=== PATIENT | male | born 1990 | race Two or more races ===

== ENCOUNTER 2017-02-20 05:54 | Emergency (ER) | payer SELFPAY ==
[~2017-02-20] VITALS: Ht 180.3 cm; Wt 79.4 kg
[2017-02-20 06:02] VITALS: BP 138/88
--- NOTE | 2017-02-20 06:03 | Emergency Room Report ---
History of Present Illness General Source: Patient, EMS (ARIES FLOOD M.D.) Present Illness HPI 26YOM BIBEMS from rehab facility (for ETOH abuse). C/o left sided non- radiating chest pain for 10 hours. Associated with 1 week of productive cough. Denies fever/chills, abd pain, nausea/vomiting, urinary complaints. last used cocaine 1 week ago. Just started smoking cigarettes. Pain worse with movement. Was given nitro spray and ASA by EMS that brought pain down "a little." No previous AMI or PE. No other medical problems. EMS rhythm strip showed junctional rhythm. (ARIES FLOOD M.D.) Allergies: Coded Allergies: No Known Allergies (Unverified , 02/20/17) Patient History Past Medical History: none Past Surgical History: none Pertinent Family History: none Social History: Reports: alcohol use, drug use, smoking (ARIES FLOOD M.D. ) Review of Systems All Other Systems: negative except mentioned in HPI (ARIES FLOOD M.D.) Physical Exam Sp02 EP Interpretation: reviewed, normal General Appearance: normal inspection, well appearing, no apparent distress, alert, GCS 15, non-toxic, other - laughing, hyperactive Head: normocephalic, atraumatic Eyes: bilateral eye EOMI, bilateral eye PERRL ENT: normal ENT inspection, hearing grossly normal, normal voice Neck: normal inspection, full range of motion, supple, no bony tend Respiratory: normal inspection, lungs clear, normal breath sounds, no rhonchi, no respiratory distress, no retraction, no accessory muscle use, no wheezing, other - Chest wall pain reproducible, chest symmetrical Cardiovascular #1: regular rate, rhythm, no edema Gastrointestinal: normal inspection, normal bowel sounds, non tender, soft, no guarding, no hernia Genitourinary: no CVA tenderness Musculoskeletal: normal inspection, back normal, normal range of motion, Mohinder' s Sign negative Neurologic: normal inspection, alert, oriented x3, responsive, hydraulic plumber III-XII nml as tested, motor strength/tone normal, speech normal Psychiatric: normal inspection, judgement/insight normal, mood/affect normal Skin: normal inspection, normal color, no rash (ARIES FLOOD M.D.) Medical Decision Making Diagnostic Impression: Primary Impression: Chest pain Qualified Codes: R07.9 - Chest pain, unspecified Additional Impressions: Cough Hypokalemia ER Course 26YOM with chest pain for 10 hours, cough for 1 week. VSS. Afebrile. Improved with EMS given nitro sprays, ASA DDx includes ACS, PNA, PTX, cocaine ischemia PLAN ECG, labs, analgesia, CXR, reassess Endorsed to Dr Feldman at 615am to followup labs, CXR, determine disposition (ARIES FLOOD M.D.) ER Course Patient is a fairly complex patient with multiple differential to consideration including but not limited to cardiac cardiopulmonary and vascular emergencies Please refer to the initial history and note for initial specifics I do agree with that input At this time patient's EKG shows evidence of LVH Chest x-ray also showing evidence of likely borderline cardiomegaly patient has had extensive drug abuse in the past Potentially she been to this Otherwise acutely, enzyme was negative Given the duration of time and the patient's presentation unlikely for cardiac pathology at this time Patient's potassium was also low which was replaced At this time requires close outpatient followup urgently Labs Test 02/20/17 05:56 White Blood Count 7.3 K/UL (4.8-10.8) Red Blood Count 4.84 M/UL (4.70-6.10) Hemoglobin 15.0 G/DL (14.2-18.0) Hematocrit 45.4 % (42.0-52.0) Mean Corpuscular Volume 94 FL (80-99) Mean Corpuscular Hemoglobin 31.0 PG (27.0-31.0) Mean Corpuscular Hemoglobin Concent 33.0 G/DL (32.0-36.0) Red Cell Distribution Width 11.7 % (11.6-14.8) Platelet Count 147 K/UL (150-450) Mean Platelet Volume 10.2 FL (6.5-10.1) Neutrophils (%) (Auto) 68.7 % (45.0-75.0) Lymphocytes (%) (Auto) 17.8 % (20.0-45.0) Monocytes (%) (Auto) 11.4 % (1.0-10.0) Eosinophils (%) (Auto) 0.7 % (0.0-3.0) Basophils (%) (Auto) 1.4 % (0.0-2.0) Sodium Level 144 mEQ/L (135-145) Potassium Level 2.6 mEQ/L (3.4-4.9) Chloride Level 107 mEQ/L (98-107) Carbon Dioxide Level 20 mEQ/L (20-30) Anion Gap 17 (5-15) Blood Urea Nitrogen 13 mg/dL (7-23) Creatinine 0.6 mg/dL (0.7-1.2) Estimat Glomerular Filtration Rate > 60 mL/min (>60) Glucose Level 88 mg/dL (74-106) Calcium Level 7.1 mg/dL (8.6-10.2) Total Bilirubin 0.5 mg/dL (0.0-1.2) Aspartate Amino Transf (AST/SGOT) 111 U/L (5-40) Alanine Aminotransferase (ALT/SGPT) 28 U/L (3-41) Alkaline Phosphatase 34 U/L (40-129) Total Creatine Kinase 3430 U/L (38-174) Creatine Kinase MB 3.4 ng/mL (< 6.7) Creatine Kinase MB Relative Index 0.0 Troponin I < 0.30 ng/mL (<=0.30) Total Protein 6.2 g/dL (6.6-8.7) Albumin 3.3 g/dL (3.5-5.2) Globulin 2.9 g/dL Albumin/Globulin Ratio 1.1 (1.0-2.7) Urine Opiates Screen Negative (NEGATIVE) Urine Barbiturates Screen Negative (NEGATIVE) Phencyclidine (PCP) Screen Negative (NEGATIVE) Urine Amphetamines Screen Negative (NEGATIVE) Urine Benzodiazepines Screen Negative (NEGATIVE) Urine Cocaine Screen Negative (NEGATIVE) Urine Marijuana (THC) Screen Positive (NEGATIVE) (JEANE FELDMAN D.O.) EKG Diagnostic Results Rate: normal Rhythm: NSR ST Segments: other - LVH (JEANE FELDMAN.O.) Rhythm Strip Diag. Results EP Interpretation: yes Rate: 60 Rhythm: NSR, no PVC's, no ectopy (JEANE FELDMAN.Freddy.) Chest X-Ray Diagnostic Results EP Interpretation: Yes Findings: no consolidation, no effusion, no pneumothorax, other - Cardiomegaly Number of Views: 1 (JEANE FELDMAN.Freddy.) Status: improved (JEANE FELDMAN D.O.) Disposition: HOME, SELF-CARE Condition: Improved Additional Instructions: Patient is provided with the discharge instructions notified to follow up with primary doctor in the next 2-3 days otherwise return to the er with any worsening symptoms. Please note that this report is being documented using [employer] technology. This can lead to erroneous entry secondary to incorrect interpretation by the dictating instrument. ARIES FLOOD M.D. February 20, 2017 06:03 JEANE FELDMAN D.O. February 20, 2017 07:28
[2017-02-20 06:31] LABS: BASOPHILS % (AUTO) 1.4 % (0.0-2.0); EOSINOPHILS % (AUTO) 0.7 % (0.0-3.0); LYMPHOCYTES % (AUTO) 17.8 % (20.0-45.0); MEAN CORPUSCULAR VOLUME 94 FL (80-99); MEAN PLATELET VOLUME 10.2 FL (6.5-10.1); MONOCYTES % (AUTO) 11.4 % (1.0-10.0); NEUTROPHILS % (AUTO) 68.7 % (45.0-75.0); PLATELET COUNT 147 K/UL (150-450); RED BLOOD COUNT 4.84 M/UL (4.70-6.10); RED CELL DISTRIBUTION WIDTH 11.7 % (11.6-14.8); WHITE BLOOD COUNT 7.3 K/UL (4.8-10.8)
[2017-02-20 06:42] LABS: ALANINE AMINOTRANSFERASE 28 U/L (3-41); ALBUMIN/GLOBULIN RATIO 1.1 (1.0-2.7); ANION GAP 17 (5-15); ASPARTATE AMINO TRANSFERASE 111 U/L (5-40); CALCIUM 7.1 mg/dL (8.6-10.2); CARBON DIOXIDE 20 mEQ/L (20-30); CHLORIDE 107 mEQ/L (98-107); CREATININE 0.6 mg/dL (0.7-1.2); GLOMERULAR FILTRATION RATE > 60 mL/min (>60); HEMOLYSIS 4; SODIUM 144 mEQ/L (135-145); TOTAL PROTEIN 6.2 g/dL (6.6-8.7); TROPONIN I < 0.30 ng/mL (<=0.30)
[2017-02-20 06:52] LABS: CKMB 3.4 ng/mL (< 6.7)
[2017-02-20 07:00] LABS: POTASSIUM 2.6 mEQ/L (3.4-4.9)
[2017-02-20 07:35] VITALS: BP 149/90
--- NOTE | 2017-02-20 10:36 | Diagnostic Imaging Report ---
Indication: Chest pain Technique: Single AP view of the chest. Findings: Comparison: None. Cardiac silhouette upper limits of normal in size. The bones and extra pulmonary soft tissues, remainder of the cardiomediastinal silhouette, pulmonary vasculature and parenchyma, and pleural surfaces are unremarkable. IMPRESSION: Borderline cardiomegaly Otherwise negative.
--- NOTE | 2017-02-22 20:08 | Cardiology Report ---
APPROVED REPORT EKG Measurement Heart [id number] LA [id number] Sinus bradycardia with sinus arrhythmia Minimal voltage criteria for LVH, may be normal variant Borderline ECG
== END 2017-02-20 07:35 | disposition home or self-care (01) ==
LOC: EDBD 05:54 → EMR 06:05
DX: R07.9 Chest pain, unspecified (principal); R05 Cough; E87.6 Hypokalemia; F17.200 Nicotine dependence, unspecified, uncomplicated; I51.7 Cardiomegaly
CPT/HCPCS: 36415; 71010; 80053; 80300; 82550; 82553; 84484; 85025; 93005; 99283; J8499